=== PATIENT | male | born 1935 | race Caucasian/White ===

== ENCOUNTER → 2024-04-04 11:43 | Outpatient (CLI) | payer OTHER, SELFPAY ==
--- NOTE | 2024-04-04 12:05 | EKG_ITS ---
[facility] [address] [place] [address] Test Date: 2024-04-04 Pat Name: Derrick Castro Department: Room: Gender: Male [employer]: : 1935 Requested By: Order Number: [id number] Reading MD: Rickey Banks MD Measurements Intervals [place] Rate: 116 P: GA: QRS: 54 QRSD: 80 T: -1 QT: 318 QTc: 442 Interpretive Statements Atrial fibrillation with rapid ventricular response with premature ventricular or aberrantly conducted complexes NO PRIOR TRACING Electronically Signed On 04-04-2024 13:44:01 PDT by Rickey Banks MD
[2024-04-04 12:40] LABS: Add Manual Diff / Slide Review NO; Basophils Absolute Auto 0 /uL (0-100); Basophils Percent Auto 0.6 % (0-2); Eosinophils Absolute Auto 100 /uL (0-450); Eosinophils Percent Auto 1.9 % (2-4); Hematocrit 43.1 % (41-53); Hemoglobin 14.5 g/dL (13.5-17.5); Lymphocytes Absolute Auto 1200 /uL (1100-4500); Lymphocytes Percent Auto 19.2 % (25-40); Mean Corpuscular HGB Conc 33.7 % (30-36); Mean Corpuscular Hemoglobin 34.1 PG (26-34); Monocytes Absolute Auto 500 /uL (0-900); Monocytes Percent Auto 7.9 % (3-14); Neutrophils Absolute Auto 4300 /uL (1500-7000); Neutrophils Percent Auto 70.4 % (50-75); Platelet Count 284 X10^3/uL (150-400); Red Blood Cell Count 4.27 X10^6/uL (4.5-5.9); Red Cell Distribution Width 13.9 % (11.6-14.8); White Blood Cell Count 6.2 X10^3/uL (4.5-11.0)
[2024-04-04 17:36] LABS: BUN Creatinine Ratio 32.4 (6-22); Blood Urea Nitrogen 24 mg/dL (9-20); Calcium 9.4 mg/dL (8.4-10.2); Carbon Dioxide 25 mmol/L (22-32); Chloride 102 mmol/L (98-107); Estimated Glomerular Filt Rate > 60 mL/min (>60); Glucose 120 mg/dL (80-110); HEMOLYSIS 17 (0-50); Sodium 135 mmol/L (137-145)
== END ==
LOC: LAB 11:46
PROVIDERS: Referring Provider Orthopaedic Surgery Orthopaedic Surgery of the Spine; Visit Provider Orthopaedic Surgery Orthopaedic Surgery of the Spine
DX: Z01.818 Encounter for other preprocedural examination (principal); Z01.812 Encounter for preprocedural laboratory examination
CPT/HCPCS: 36415; 80048; 85025; 93005; 93010

== ENCOUNTER 2024-04-10 07:11 | Day surgery (SDC) | payer OTHER, SELFPAY ==
[2024-04-08 10:39] VITALS: BMI 26.9
[2024-04-10] VITALS (11 sets, daily range): BP systolic 92–154; BP diastolic 53–89; PULSE 90–163; RESP 12–18; TEMP 36.1–37.1; O2SAT 96–100; BMI 26.6
--- NOTE | 2024-04-10 | DI.RAD.S_ITS ---
PROCEDURE: XR LUMBAR SPINE 2-3V INDICATIONS: LAMI L2-3 TECHNIQUE: Fluoroscopic guidance utilized for a lumbar procedure COMPARISON: None. FINDINGS: Fluoroscopic images submitted for a lumbar procedure. Please see operative note for further discussion. IMPRESSION: Fluoroscopic guidance. Dictated by: Roque May M.D. on 04/10/2024 at 12:32 Approved by: Roque May M.D. on 04/10/2024 at 12:33
[2024-04-10] MEDS: LACTATED RINGERS 1,000 ML 42 ML IV (09:10)
--- NOTE | 2024-04-10 09:20 | PM.PREOP ---
Pre-operative Note Interval Note History & Physical reviewed/Exam performed by Physician: Yes Changes to H&P: No
[2024-04-10] MEDS: CEFAZOLIN 2 GM/100 ML PREMIX 100 ML IV (10:02)
--- NOTE | 2024-04-10 10:12 | SUR.OPER ---
Prone on spine table, head in foam head support, padded chest and pelvic supports, gel pad at knees, lower legs supported by pillows; nipples, genitalia and toes free of pressure, arms secured on foam padded arm boards at <90 degrees abduction. Tape over blanket at thigh secured to table.
[2024-04-10] MEDS: BUPIVACAINE 0.25% (PF) 30 ML, EPINEPHrine 0.15 MG INJ (10:24)
--- NOTE | 2024-04-10 11:13 | PM.OP.1 ---
Operative Date/Time/Diagnoses Date of procedure: 04/10/24 Time of procedure: 10:00 Pre-op diagnosis: 1. 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 L2-3 laminectomies with bilateral partial facetecomies 2. Utilization of microsurgical technique and operating microscope Same procedure as scheduled: Yes Indications: Patient has been having chronic back pain and worsening lumbar radiculopathy and neurogenic claudication. Patient was found to have severe L2-3 spinal stenosis correlating with his symptoms of neurogenic claudication. Patient failed multiple conservative management with worsening pain weakness and numbness in his lower extremity. Patient has been having difficulty performing activity of daily living. After discussing risks benefits of treatment options, patient elected proceed with surgery. Surgeon: Horacio Pacheco Reference Investigator: Anahi Dutta Click Yes if Unassisted: No Anesthesia Type: General Operative Notes Closure Type: primary Specimen(s): none sent Estimated Blood Loss (mL): 5 Procedure in detail: Patient was seen in the preoperative area. Risks and benefits of the surgery was discussed with the patient. Informed consent was obtained from the patient and placed in the chart. Surgical site was marked. Patient was taken to the operative room. General anesthesia was administered. Prophylactic antibiotic was given to the patient less than 30 min before the incision was made. Patient was placed into a prone position on the Richard table. Patient's back was then prepped and draped in the sterile fashion. Time-out was performed at this time. Using AP and lateral C-arm imaging the interval between L2-3 was identified and marked on patient's back. A 1 inch incision 1 in from midline was made on the left side. The fascia was incised in line with skin incision. Globus MARS retractors was placed inside the incision and docked onto the L2 lamina. Using microsurgical technique and operating microscope, a L2-3 laminectomy was performed using a Kerrison rongeur. Liagamentum flavum was resected at the site of the laminotomy. Either side of the dura was exposed. Bilateral partial facetcomies was performed to further decompress the lateral recess. Patient was also found have significant ligamentum flavum hypertrophy which was also resected during the process of decompression. After the laminectomy was completed, the area medial lateral superior and inferior to the area of the laminectomy was inspected and explored using a micro curette. No other impinging structure was identified. The wound was then irrigated with sterile normal saline. 40 mg Depo-Medrol was placed into the epidural space. The deep fascia was closed with 1-0 Vicryl. The subcutaneous tissue was closed with 2-0 Vicryl. The skin was closed with 4-0 Monocryl. Patient tolerated the procedure well. There were no complications. Patient was transferred recovery room in stable condition. Complications: none Post-operative Condition: stable Disposition: PACU Plan for aftercare: Discharge to home
[2024-04-10] MEDS: OXYCODONE IR 5 MG TABLET PO (11:41)
--- NOTE | 2024-04-10 11:46 | SUR.PHASEI ---
Pt to PACU with HR 160-170 AFIB. Treated in PACU by DENITA Gonzales with Metoprolol and Diltiazem. Pt asymptomatic.
[2024-04-10] MEDS: ACETAMINOPHEN IV 1,000 MG/100 ML VIAL 400 MG IV (11:58)
== END 2024-04-10 12:53 | disposition home or self-care (01) ==
LOC: OR 07:12 → AC 07:13
PROVIDERS: PCP Internal Medicine; Referring Provider Internal Medicine; Visit Provider Orthopaedic Surgery Orthopaedic Surgery of the Spine
PROC: (CPT 63047; principal; 2024-04-10 09:45)
DX: M48.062 Spinal stenosis, lumbar region with neurogenic claudication (principal); M54.16 Radiculopathy, lumbar region
CPT/HCPCS: 63047; 72100; 76000; J0136; J0171; J0330; J0690; J2405; J2704; J2919; J3010